=== PATIENT | male | born 1940 | race Caucasian/White ===

== ENCOUNTER → 2018-01-08 | Outpatient (CLI) | payer OTHER | LOC: BMCIMAGING 15:16 | PROVIDERS: ATTEND Family Medicine | DX: M79.674 Pain in right toe(s) (principal) ==

== ENCOUNTER → 2018-02-14 | Outpatient (CLI) | payer OTHER ==
[~2018-02-14] MED LIST: IOPAMIDOL (ISOVUE 370) 100 ML BTL IV ONE
== END ==
LOC: FIMAGING 12:50
DX: I71.6 Thoracoabdominal aortic aneurysm, without rupture (principal); I72.3 Aneurysm of iliac artery; I72.4 Aneurysm of artery of lower extremity; I77.1 Stricture of artery; K80.20 Calculus of gallbladder without cholecystitis without obstruction; J92.9 Pleural plaque without asbestos
CPT/HCPCS: 75635; Q9967

== ENCOUNTER 2018-04-01 16:12 | Emergency (ER) | payer OTHER ==
--- NOTE | 2018-04-01 16:49 | EDPHY ---
H & P Time Seen by Provider: 04/01/18 16:24 HPI/ROS: CHIEF COMPLAINT: Right leg pain and swelling HISTORY OF PRESENT ILLNESS: 77-year-old male presents to the emergency department with pain and swelling in the right leg. Patient has a history of severe vasculopathy as noted from CT scan with runoff in February of 2018. He had a lithotripsy type procedure to help "break-up the calcifications in his legs". This was procedure was done 03/17/2018. He was started on Plavix at that time. He continues to take baby aspirin. He states that he was expected to have some swelling and some bruising that should have resolved within about 2-3 week time period. The patient states that he has noticed continued ongoing swelling , bruising and pain. He states that it has improved although not resolved. He went to see his marine pilot since all 1 of his partners and he was sent to the emergency department for evaluation. The patient has a history of COPD. He does not use oxygen. He does use a walker for assistance occasionally. REVIEW OF SYSTEMS: Constitutional: No fever, no chills. Eyes: No double or blurry vision. ENT: No sore throat. Respiratory: No cough, no shortness of breath. Cardiac: No chest pain. Gastrointestinal: No abdominal pain, vomiting or diarrhea. Genitourinary: No dysuria. Musculoskeletal: No neck or back pain. Skin: No rashes. Neurological: No headache. Past Medical/Surgical History: Hypertension, COPD, AFib with ablation, cardiac stent 2-3 years ago, severe vasculopathy with recent procedure 03/17/[address] Mcdaniel at [facility] Social History: Smoking Status: Former smoker Physical Exam: General Appearance: Alert, no distress. Eyes: Pupils equal and round. Extraocular motions are all intact. ENT: Mouth: Mucous membranes moist. Respiratory: No wheezing, rhonchi, or rales, lungs are clear to auscultation. Cardiovascular: Regular rate and rhythm. Gastrointestinal: Abdomen is soft and nontender, no masses, no rebound or guarding, bowel sounds normal. Neurological: Alert and oriented x 3, cranial nerves II through XII grossly intact Skin: Warm and dry, no rashes. Musculoskeletal: Nontender to palpate along the cervical, thoracic or lumbar spine. Neck is supple. Extremities: Full range of motion. Patient has edema noted to the right lower extremity with ecchymosis. Mild diffuse tenderness with palpation the posterior aspect of the right leg overlying the calf. No evidence of compartment syndrome. No palpable bony tenderness. He has palpable dorsalis pedis pulse bilaterally. This was also confirmed with Doppler. Psychiatric: Patient is oriented X 3, there is no agitation. Constitutional: Initial Vital Signs Temperature (C) 37.1 C 04/01/18 16:19 Heart Rate 86 04/01/18 16:19 Respiratory Rate 24 H 04/01/18 16:19 Blood Pressure 127/74 H 04/01/18 16:19 O2 Sat (%) 91 L 04/01/18 16:19 O2 Delivery Mode Room Air Allergies/Adverse Reactions: No Known Allergies Allergy (Unverified 04/01/18 16:18) Home Medications: Medication Instructions Recorded Atorvastatin Calcium 04/01/18 Iron 04/01/18 Lasix 04/01/18 Lisinopril 04/01/18 Metoprolol Tartrate 04/01/18 Multivitamins 04/01/18 Plavix 04/01/18 Protonix 04/01/18 Tylenol 04/01/18 Vitamin B12 04/01/18 Medical Decision Making - Diagnostics Imaging Results: Imaging Impressions Extremity Venous Study 04/01/18 17:08 Impression: No evidence of deep vein thrombosis in the right lower extremity. Results called and discussed with NIGHAT YE on 04/01/2018 at 18:11 Aorta w/Runoff CTA 04/01/18 17:37 Impression: 1. Postprocedural intramuscular hematoma in the right popliteal region and extending into the upper calf probably within the lateral head of the gastrocnemius muscle. There is no associated active extravasation. 2. See above report for additional findings. 3. A copy of this study will be made available to the patient's healthcare providers at [facility]. Results called and discussed with Nighat Jacobson PA-C, on April 01, 2018. Imaging: Discussed imaging studies w/ staff forester Radiologist ED Course/Re-evaluation: 77-year-old male presents to the emergency department with concerns about right calf pain and swelling. He was seen by marine pilot today and they sent him to the emergency department for evaluation. The case was discussed with Dr. Valderrama, secondary supervising physician. The patient has warm lower extremities to touch. He has palpable dorsalis pedis pulses as well as positive Doppler dorsalis pedis pulses bilaterally. I spoke with Dr. Gerson Mendenhall at 5:07 p.m. And he agreed with ultrasound of the right lower extremity to exclude DVT. Dr. Gerson Mendenhall called back at 5:30 p.m. After reviewing the patient's procedure that was performed on 03/17/2018 and he recommended obtaining CT scan with runoff to evaluate for possible perforation. CT scan with runoff reveals evidence of injury to the popliteal artery without acute is strap cessation. He has a large hematoma in the right calf. I spoke with Dr. Gerson mendenhall whom the patient has a scheduled follow-up appointment with in 2 days. He recommended that the patient could be discharged home. The patient is comfortable being discharged home. I did warn them regarding risks of possible compartment syndrome. There is no evidence of compartment syndrome on examination. I encouraged elevating the leg and taking Tylenol as prescribed and will return if he develops increasing pain or swelling or any other concerns. He and his at bedside are comfortable with this plan. Differential Diagnosis: Including but not limited to DVT, cellulitis, hematoma, perforation - Data Points Laboratory Results: Laboratory Results 04/01/18 17:47 04/01/18 17:47 04/01/18 04/01/18 17:47 17:47 WBC 6.50 10^3/uL 10^3/uL (3.80-9.50) RBC 3.85 10^6/uL L 10^6/uL (4.40-6.38) Hgb 11.2 g/dL L g/dL (13.7-17.5) Hct 34.9 % L % (40.0-51.0) MCV 90.6 fL fL (81.5-99.8) MCH 29.1 pg pg (27.9-34.1) MCHC 32.1 g/dL L g/dL (32.4-36.7) RDW 17.1 % H % (11.5-15.2) Plt Count 348 10^3/uL 10^3/uL (150-400) MPV 9.3 fL fL (8.7-11.7) Neut % (Auto) 72.0 % % (39.3-74.2) Lymph % (Auto) 13.2 % L % (15.0-45.0) [place] % (Auto) 10.2 % % (4.5-13.0) Eos % (Auto) 3.5 % % (0.6-7.6) Baso % (Auto) 0.5 % % (0.3-1.7) Nucleat RBC Rel Count 0.0 % % (0.0-0.2) Absolute Neuts (auto) 4.68 10^3/uL 10^3/uL (1.70-6.50) Absolute Lymphs (auto) 0.86 10^3/uL L 10^3/uL (1.00-3.00) Absolute Monos (auto) 0.66 10^3/uL 10^3/uL (0.30-0.80) Absolute Eos (auto) 0.23 10^3/uL 10^3/uL (0.03-0.40) Absolute Basos (auto) 0.03 10^3/uL 10^3/uL (0.02-0.10) Absolute Nucleated RBC 0.00 10^3/uL 10^3/uL (0-0.01) Immature Gran % 0.6 % % (0.0-1.1) Immature Gran # 0.04 10^3/uL 10^3/uL (0.00-0.10) Sodium 132 mEq/L L mEq/L (135-145) Potassium 5.0 mEq/L mEq/L (3.3-5.0) Chloride 96 mEq/L L mEq/L (97-110) Carbon Dioxide 23 mEq/l mEq/l (22-31) Anion Gap 13 mEq/L mEq/L (8-16) BUN 21 mg/dL mg/dL (7-23) Creatinine 0.9 mg/dL mg/dL (0.7-1.3) Estimated GFR > 60 Glucose 82 mg/dL mg/dL (70-100) Calcium 9.3 mg/dL mg/dL (8.5-10.4) Departure - Departure Disposition: Home, Routine, Self-Care Clinical Impression: Hematoma of right lower extremity Qualifiers: Encounter type: initial encounter Qualified Code(s): S80.11XA - Contusion of right lower leg, initial encounter Condition: Good Instructions: Hematoma (ED) Additional Instructions: Call [facility] Cardiology tomorrow as discussed. Keep scheduled appointment on with Dr. Mendenhall. Return to the emergency department if you develop increasing pain or swelling in her calf or if you have any other concerns. Referrals: Kenna Hall MD [Primary Care Provider] - As per Instructions
[2018-04-01 17:57] LABS: PLATELET COUNT 348 10^3/uL (150-400)
[2018-04-01] MEDS ORDERED: IOPAMIDOL (ISOVUE-370) 150 ML BTL IV ONE (18:26)
[2018-04-01 20:19] VITALS: BP 115/79
== END 2018-04-01 20:31 | disposition home or self-care (01) ==
DX: M96.841 Postprocedural hematoma of a musculoskeletal structure following other procedure (principal); I10 Essential (primary) hypertension; J44.9 Chronic obstructive pulmonary disease, unspecified; Z87.891 Personal history of nicotine dependence; Z95.5 Presence of coronary angioplasty implant and graft
CPT/HCPCS: 75635; 93971; 99285; Q9967

== ENCOUNTER → 2019-01-07 | Outpatient (CLI) | payer OTHER | LOC: FIMAGING 12:35 | PROVIDERS: ATTEND Internal Medicine Cardiovascular Disease | DX: I70.235 Atherosclerosis of native arteries of right leg with ulceration of other part of foot (principal) ==

== ENCOUNTER → 2019-02-13 | Outpatient (CLI) | payer OTHER | LOC: BMCIMAGING 16:41 | PROVIDERS: ATTEND Internal Medicine Geriatric Medicine | DX: J44.1 Chronic obstructive pulmonary disease with (acute) exacerbation (principal); J94.8 Other specified pleural conditions ==